=== PATIENT | female | born 1970 | race Caucasian/White ===

== ENCOUNTER 2022-10-29 11:00 | Emergency (ER) | payer SELFPAY ==
[2022-10-29 11:01] VITALS: BP 128/83; PULSE 60; RESP 16; TEMP 36.6; O2SAT 99; BMI 23.5
[2022-10-29 11:29] VITALS: BP 128/83; PULSE 60; RESP 16; TEMP 36.6; O2SAT 99
--- NOTE | 2022-10-29 12:27 | EDS_ITS ---
HPI History of Present Illness Chief Complaint: Abscess Informant: patient Narrative Narrative: Patient has had a small lump on her chest for many years. She had it biopsied about 4 years ago and it was benign. It is stayed a small lump about the size of an eraser. But over the last 2 to 3 days it has gotten swollen red and tender. No systemic symptoms such as nausea vomiting fevers or chills. No history of diabetes. No acute trauma. No other areas. No trouble breathing. PFSH PFSH Home Medications ovlfrju-qjhfptweadruk-mbnpszwg 250 mg-250 mg-65 mg tablet (Excedrin Migraine) 1 ea PO DAILY PRN PRN Migraine Symptoms 11/27/15 [History Last Taken Unknown] etodolac 300 mg capsule 300 mg PO TIDCM ##30 11/27/15 [Rx Last Taken Unknown] docusate sodium 100 mg capsule (DOK) 100 mg PO DAILY #20 caps 10/29/22 [Rx Last Taken Unknown] hydrocodone-acetaminophen 5-325mg 5mg-325mg 1 tab PO Q6H PRN pain 2 days #6 tabs 10/29/22 [Rx Last Taken Unknown] Allergy/AdvReac Type Severity Reaction Status Date / Time No Known Allergies Allergy Verified 10/29/22 11:02 Social History Smoking Status: Current every day smoker tobacco type: cigarettes ROS ROS ED Constitutional Constitutional ED: Denies chills or fever(s) Cardiovascular Cardiovascular: Denies palpitations or racing heartbeat Respiratory/Chest Respiratory/Chest: Denies cough, dyspnea or sputum Gastrointestinal Gastrointestinal: Denies abdominal pain, nausea or vomiting Genitourinary Genitourinary ED: Denies dysuria Musculoskeletal Musculoskeletal: Denies myalgias Integumentary Reports abscess Hematologic/Lymphatic Hematologic/Lymphatic: Denies easy bleeding or easy bruising Allergic/Immunologic Allergic/Immunologic ED: Denies urticaria EXAM Physical Exam Const Vital Signs: 10/29/22 11:01 10/29/22 11:29 Temperature 98 F 98 F Temperature Source Temporal Temporal Pulse Rate 60 60 Respiratory Rate 16 16 Blood Pressure 128/83 H 128/83 H Blood Pressure Mean 98 98 Pulse Ox 99 99 Oxygen Delivery Method Room Air Room Air Positive well nourished and well developed General Appearance ED: well developed and NAD HEENT Reports moist mucous membranes Eyes General Eye ED: Negative for scleral icterus Neck no lymphadenopathy Chest Wall Chest Narrative: Patient does have a swollen area that is about 2 cm around. There is erythema larger around this. It does have some mild fluctuance. There is a small dimple in the middle that looks like this is likely a poor indicating chronic epidermal inclusion cyst likely. I did do a bedside ultrasound that shows about a centimeter around area of likely fluid within this. Resp normal respiratory effort and clear to auscultation bilaterally Cardio regular rate and regular rhythm Neuro Sensorium / Orientation: alert Psych mental status grossly normal Skin Skin Narrative: See above [facility] MDM Narrative Medical decision making narrative: Procedure: Incision and drainage of abscess: I discussed risks and benefits with the patient. I explained that this is a chronic cyst that got acutely infected. Therefore it can have a higher chance to return.The area around the wound was sterilely prepped. It was cleansed with Shur-Clens and sterile saline. It was anesthetized with 4 cc of 1% lidocaine locally with good anesthesia. #11 blade was used to make an incision over the area. I was able to see the cyst wall. The incision was extended slightly to a total of 1.5 cm.We attempted to work around the cyst to pull it out complete but it was actually quite large and and then it broke and drained acutely purulent material due to its friability. This was irrigated and cleaned. I then still continued to pull the edges of the cyst wall out. We got quite a large amount of old cottage cheeselike cystic material. I was able to get a moderate amount of the cyst wall out but a lot of it just would not free. It was irrigated and cleaned. Gauze packing was placed. I explained care follow-up and expected course to the patient. No significant bleeding.No trouble breathing or significant pain. Patient tolerated quite well Procedures Other Procedures Procedure(s): Incision and drainage see MDM Discharge Plan Triage Chief Complaint: Abscess ED Provider: Farooq Fuentes Dx/Rx/DC Orders Clinical Impression: Abscess of chest wall, Epidermal inclusion cyst, Encounter for incision and drainage procedure Instructions: ED Abscess Incision And Drainage Prescriptions: New hydrocodone-acetaminophen 5-325 mg tablet 1 tab PO Q6H PRN (Reason: pain) 2 Days Qty: 6 0RF docusate sodium [DOK] 100 mg capsule 100 mg PO DAILY Qty: 20 0RF No Action cnepwse-cfqebwrczhhll-xgnhdiws [Excedrin Migraine] 1 EACH tablet 1 ea PO DAILY PRN PRN (Reason: Migraine Symptoms) etodolac 300 MG capsule 300 mg PO TIDCM Qty: 30 0RF Rx Instructions: with food Primary Care Provider: Tere Orta Referrals: Orlando Colorado DO [Non-Staff] - 3-5 Days Activity Restrictions/Additional Instructions: Pull wound packing/wick out in approximately 3 days. Disposition Disposition: Home, Self Care
== END 2022-10-29 14:10 | disposition home or self-care (01) ==
PROVIDERS: Emergency Provider Emergency Medicine; PCP Student in an Organized Health Care Education/Training Program; Visit Provider Emergency Medicine
DX: L02.213 Cutaneous abscess of chest wall (principal); L72.0 Epidermal cyst; F17.210 Nicotine dependence, cigarettes, uncomplicated
CPT/HCPCS: 10061; 99282

== ENCOUNTER 2023-02-17 18:05 | Emergency (ER) | payer BC, SELFPAY ==
[2023-02-17 18:06] VITALS: BP 138/89; PULSE 55; RESP 18; TEMP 36.3; O2SAT 100; BMI 24.7
--- NOTE | 2023-02-17 19:07 | EDS_ITS ---
HPI History of Present Illness Chief Complaint: Dental Informant: patient Narrative Narrative: Patient complains of dental pain and nausea from medicines. She has been having off-and-on dental pain for some months. She is seeing a dentist. She has an appointment for what sounds like extraction or possibly filling of cavities on 04 March about 2 weeks from now. She was on Augmentin about 3 or 4 weeks ago. It calmed down a little bit. She was now put on Augm entin a few days ago and is causing nausea. The teeth are not really better or worse. She is eating and drinking. She is not having chest pain. No abdominal pain. She has not vomited but she just gets very nauseated. PFSH PFSH Home Medications rylvvpz-vhedrwthcebtf-oldpghuh 250 mg-250 mg-65 mg tablet (Excedrin Migraine) 1 ea PO DAILY PRN PRN Migraine Symptoms 11/27/15 [History Last Taken Unknown] etodolac 300 mg capsule 300 mg PO TIDCM ##30 11/27/15 [Rx Last Taken Unknown] doxycycline monohydrate 100 mg capsule 100 mg PO BID #20 caps 10/29/22 [Rx Last Taken Unknown] hydrocodone-acetaminophen 5-325mg 5mg-325mg 1 tab PO Q6H PRN pain 2 days #6 tabs 10/29/22 [Rx Last Taken Unknown] clindamycin HCl 300 mg capsule (Cleocin HCl) 300 mg PO Q6H #40 CAPSULES 02/17/23 [Rx Last Taken Unknown] ondansetron 4 mg disintegrating tablet 4 mg PO Q8H PRN PRN Nausea #10 tabs 02/17/23 [Rx Last Taken Unknown] Allergy/AdvReac Type Severity Reaction Status Date / Time No Known Allergies Allergy Verified 02/17/23 18:08 Social History Smoking Status: Current every day smoker tobacco type: cigarettes ROS ROS ED Constitutional Constitutional ED: Denies chills, fever(s) or subjective Eyes Eyes: Denies change in vision ENT ENT ED: Reports other Details: Dental pain as in history of present illness ; Denies rhinorrhea or sore throat Cardiovascular Cardiovascular: Denies chest pain Respiratory/Chest Respiratory/Chest: Denies cough Gastrointestinal Gastrointestinal: Reports nausea; Denies abdominal pain or vomiting Musculoskeletal Musculoskeletal: Denies back pain, myalgias or neck pain Integumentary Denies rash Neurologic Neurologic: Denies headache(s) Hematologic/Lymphatic Hematologic/Lymphatic: Denies lymphadenopathy Allergic/Immunologic Allergic/Immunologic ED: Denies urticaria EXAM Physical Exam Narrative Exam Narrative: Patient awake alert. Laying in bed. No acute distress. HEENT shows no external swelling. No erythema. She does have multiple cavities mostly on the left lateral incisor and premolar area. There is a little gum redness. But no abscess. She has some gum retraction in other areas. Voice is normal. No Ludewig's angina. Nothing that can be drained. Eyes show no icterus Neck shows no lymphadenopathy. Lungs are clear bilaterally Heart is regular. Rate about 60. Abdomen soft nontender. Const Vital Signs: 02/17/23 18:06 Temperature 97.4 F L Temperature Source Temporal Pulse Rate 55 L Respiratory Rate 18 Blood Pressure 138/89 H Blood Pressure Mean 105 Pulse Ox 100 Oxygen Delivery Method Room Air MDM MDM MDM Narrative Medical decision making narrative: I think patient should be on antibiotics. She has erythema and pain of her teeth. I will switch to clindamycin. I will add Zofran for her nausea. She will follow-up with her dentist as planned. Discharge Plan Triage Chief Complaint: Dental ED Provider: Farooq Fuentes Dx/Rx/DC Orders Clinical Impression: Dental infection, Nausea, Medication reaction Instructions: ED Dental Abscess Prescriptions: New clindamycin HCl [Cleocin HCl] 300 mg capsule 300 mg PO Q6H Qty: 40 0RF ondansetron [ondansetron] 4 mg tablet,disintegrating 4 mg PO Q8H PRN PRN (Reason: Nausea) Qty: 10 0RF No Action hilpsdk-wwjtvagraafzw-blmozhbi [Excedrin Migraine] 1 EACH tablet 1 ea PO DAILY PRN PRN (Reason: Migraine Symptoms) etodolac 300 MG capsule 300 mg PO TIDCM Qty: 30 0RF Rx Instructions: with food hydrocodone-acetaminophen 5-325 mg tablet 1 tab PO Q6H PRN (Reason: pain) 2 Days Qty: 6 0RF doxycycline monohydrate 100 mg capsule 100 mg PO BID Qty: 20 0RF Primary Care Provider: Tere Orta Referrals: Tere Orta MD [Primary Care Provider] - Activity Restrictions/Additional Instructions: Low up with your dentist as scheduled. Disposition Disposition: Home, Self Care
== END 2023-02-17 19:28 | disposition home or self-care (01) ==
PROVIDERS: Emergency Provider Emergency Medicine; PCP Student in an Organized Health Care Education/Training Program; Visit Provider Emergency Medicine
DX: K04.7 Periapical abscess without sinus (principal); R11.0 Nausea; T36.0X5A Adverse effect of penicillins, initial encounter; F17.210 Nicotine dependence, cigarettes, uncomplicated
CPT/HCPCS: 99282

== ENCOUNTER 2024-03-06 08:47 | Emergency (ER) | payer BC, SELFPAY ==
[2024-03-06 08:47] VITALS: BP 134/99; PULSE 81; RESP 14; TEMP 36.6; O2SAT 96
--- NOTE | 2024-03-06 09:03 | EDS_ITS ---
HPI History of Present Illness Chief Complaint: Shortness of Breath Informant: patient Onset/Context/Timing Onset: Weeks (1) Context: gradual Timing: Continuous Quality: Positive for Dyspnea on exertion Worsened by: Exertion Relieved by: Rest Associated Symptoms Negative for cough, rhinorrhea, post nasal drip, ear pain, fever, sore throat, chills, sweats, clear sputum, white sputum, yellow sputum or green sputum Chest Pain: Positive for Dull Narrative Narrative: Patient presents with shortness of breath and pain in her right lower chest that has been getting worse over the past week. Patient states her pain is like a dull ache. Patient states it is along the right costal margin. Patient denies any trauma or injury. Patient states her breathing is worse with any exertion and taking a deep breath. Patient states it is better with rest. Patient denies any cough. Patient denies any fevers or chills. Patient denies any sore throat or rhinorrhea. PE Risk Factors: Negative for Cancer, OCP + Smoking + > 35, Prior DVT or PE, Recent immobilization, Recent surgery or Recent travel [facility] Medical History Hyperlipidemia Home Medications knojowu-igwkhgtzvjdxk-yolljbvh 250 mg-250 mg-65 mg tablet (Excedrin Migraine) 1 ea PO DAILY PRN PRN Migraine Symptoms 11/27/15 [History Last Taken Unknown] amlodipine 10 mg tablet 10 mg PO DAILY 03/06/24 [History Last Taken Unknown] buspirone 15 mg tablet 15 mg PO BID 03/06/24 [History Last Taken Unknown] clonazepam 0.5 mg tablet 0.5 mg PO QHS 03/06/24 [History Last Taken Unknown] fluoxetine 40 mg capsule 40 mg PO DAILY 03/06/24 [History Last Taken Unknown] Allergy/AdvReac Type Severity Reaction Status Date / Time No Known Allergies Allergy Verified 02/17/23 18:08 Surgical History H/O: hysterectomy Social History Smoking Status: Current every day smoker tobacco type: cigarettes EXAM Physical Exam Const Vital Signs: 03/06/24 08:47 03/06/24 09:37 03/06/24 09:45 Temperature 98 F Temperature Source Temporal Pulse Rate 81 77 Respiratory Rate 14 18 Respiratory Effort Normal Respiratory Depth Normal Respiratory Pattern Normal Normal Blood Pressure 134/99 H Blood Pressure Mean 110 Pulse Ox 96 Oxygen Delivery Method Room Air Room Air 03/06/24 10:45 Temperature Temperature Source Pulse Rate 74 Respiratory Rate 16 Respiratory Effort Respiratory Depth Respiratory Pattern Blood Pressure 108/62 Blood Pressure Mean 77 Pulse Ox 97 Oxygen Delivery Method Room Air Positive well nourished and well developed General Appearance ED: well developed and NAD HEENT Reports moist mucous membranes Neck supple, no meningeal signs and no JVD Chest Wall Chest Narrative: There is tenderness to palpation along the right costal margin. There is no edema or ecchymosis. There is no bony crepitance or step-off noted. Resp normal respiratory effort and clear to auscultation bilaterally Cardio regular rate and regular rhythm GI non-tender and non-distended Palpation: soft Extremity normal to inspection General Extremety ED: Negative for edema or tenderness General Extremity: Negative for edema Neuro oriented x3, CN's II-XII intact bilaterally and no sensory deficits noted [place] Coma Scale: document GCS findings Spontaneous Obeys Commands Oriented 15 Sensorium / Orientation: alert Motor Exam: strength 5/5 throughout Psych mental status grossly normal MDM MDM MDM Narrative Medical decision making narrative: Differential diagnosis includes pneumonia, viral infection, costochondritis, and reactive airway disease. CBC will be obtained to assess for leukocytosis and anemia. Basic metabolic profile will be obtained to assess for electrolyte abnormality and renal function. COVID-19, influenza, and RSV PCR will be obtained to assess for viral illness. Chest x-ray will be obtained to assess for pneumonia. Lab Data Attestation: I reviewed the patient's lab results. Lab results narrative: CBC was reviewed. White blood cell count was slightly low at 3.9. Hemoglobin was slightly elevated at 16.0. Remainder is within normal limits. Basic metabolic profile was reviewed and was essentially within normal limits. COVID- 19 PCR was reviewed and was negative. Influenza PCR was reviewed and was negative for influenza A and influenza B. RSV PCR was reviewed and was negative. Labs: Laboratory Results - last 24 hr 03/06/24 09:35 WBC 3.9 L RBC 5.37 Hgb 16.0 H Hct 46.7 MCV 87.0 MCH 29.8 MCHC 34.3 RDW Std Deviation 40.4 RDW Coeff of Jacque 12.9 Plt Count 276 MPV 9.7 Immature Gran % (Auto) 0.300 Neut % (Auto) 51.7 Lymph % (Auto) 35.5 [place] % (Auto) 7.7 Eos % (Auto) 3.3 Baso % (Auto) 1.5 H Absolute Neuts (auto) 2.0 Absolute Lymphs (auto) 1.38 Nucleated RBC % 0 Sodium 138 Potassium 3.5 Chloride 103 Carbon Dioxide 28.0 Anion Gap 7 BUN 22 H Creatinine 0.97 Estim Creat Clear Calc 60.98 Est GFR (MDRD) Af Amer 78 Est GFR (MDRD) Non-Af 65 BUN/Creatinine Ratio 22.8 H Glucose 91 Calcium 10.2 H Radiography Chest X-Ray - ED: 2 View, Read by ED Physician, Read by Radiologist and No Acute Disease Diagnostic Testing: PA and lateral chest x-ray was obtained. There are 2 views. On my independent interpretation, lung whitney are clear. There is normal cardiac silhouette. Bony thorax is normal. There is no acute process noted. Radiologist also interpreted the x-ray and agrees. Treatment and Re-Evaluation :: Patient was advised of her findings. Patient was advised that this could be co stochondritis along her costal margin. Patient was instructed to drink plenty of fluids. Patient was instructed to take Tylenol or ibuprofen as needed for pain. Patient was instructed to follow-up with her primary care physician in 5 to 7 days. Patient understood and was agreeable with the plan. All questions were answered. Discharge Plan Triage Chief Complaint: Shortness of Breath ED Provider: Jabari Desouza Dx/Rx/DC Orders Clinical Impression: Nicotine dependence, Costochondritis, Viral illness Instructions: ED Chest Wall Pain, Costochondritis Prescriptions: No Action Excedrin Migraine 1 EACH tablet 1 ea PO DAILY PRN PRN (Reason: Migraine Symptoms) fluoxetine 40 mg capsule 40 mg PO DAILY clonazepam 0.5 mg tablet 0.5 mg PO QHS amlodipine 10 mg tablet 10 mg PO DAILY buspirone 15 mg tablet 15 mg PO BID Stand Alone Forms: ED Work / School Excuse Primary Care Provider: Walter Decker Referrals: Walter Decker DO [Primary Care Provider] - 5-7 Days Tere Orta MD [Non-Staff] - 5-7 Days Disposition Disposition: Home, Self Care
[2024-03-06 09:37] VITALS: O2SAT 97
[2024-03-06] MEDS: Ipratropium/Albuterol Sulfate 3 ML AMPUL.NEB INHALATION (09:43)
[2024-03-06 09:45] VITALS: PULSE 77; RESP 18
[2024-03-06 09:51] LABS: Absolute Lymphocyte Count 1.38 X10^3/uL (0.83-4.51); Basophil# 0.06 X10^3/uL; Basophil% 1.5 % (0-1); Eosinophil# 0.13 X10^3/uL; Eosinophils% 3.3 % (0-5); Hematocrit 46.7 % (37-47); Lymphocyte # 1.38 X10^3/ul (0.83-4.51); Lymphocyte % 35.5 % (19-41); Mean Corp Hgb Conc 34.3 g/dL (32-36); Mean Corpuscular Hgb 29.8 pg (27.0-32.0); Mean Platelet Vol. 9.7 fl (6.2-12.0); Monocyte% 7.7 % (0-10); NRBC Flagged by Analyzer 0 % (0-5); Neutrophil # 2.01 X10^3/uL (2.7-7.7); Neutrophil % 51.7 % (47-70); Platelet Count 276 K/mm3 (150-450); RBC Distribution Width CV 12.9 % (11.6-14.6); RBC Distribution Width SD 40.4 fl (35.1-43.9); Red Blood Count 5.37 M/mm3 (4.2-5.4); White Blood Count 3.9 K/mm3 (4.4-11.0)
--- NOTE | 2024-03-06 10:00 | RAD_ITS ---
INDICATION: Dyspnea EXAMINATION/TECHNIQUE: X-RAY - XR Chest 2 Views COMPARISON: Prior study dated: 02/08/2006 FINDINGS: LINES/DEVICES: None. LUNGS: No consolidation, edema or effusion. No pneumothorax. MEDIASTINUM AND CARDIOVASCULAR STRUCTURES: Cardiac silhouette not enlarged. Central airways and mediastinal contour are unremarkable. BONES AND SOFT TISSUES: Unremarkable. RAD/Chest PA and Lateral IMPRESSION: No radiographic evidence of acute cardiopulmonary disease. Electronically Signed: Meliton Loya MD at 11:43 EDT ,
[2024-03-06 10:05] LABS: Anion Gap 7 (5-15); BUN 22 mg/dL (7-18); BUN/Creat Ratio 22.8 RATIO (10-20); Calcium,Total 10.2 mg/dL (8.5-10.1); Chloride 103 mmol/L (98-107); Creatinine, Serum 0.97 mg/dL (0.55-1.02); EST Glomerular Filtration Rate 65 mL/min (>60); Est Glom Filt Rate - Afr Amer 78 mL/min (>60); Estimated Creatinine Clearance 60.98 ml/min; Glucose 91 mg/dL (74-106); Potassium 3.5 mmol/L (3.5-5.1); Sodium Level 138 mmol/L (136-145)
[2024-03-06 10:45] VITALS: BP 108/62; PULSE 74; RESP 16; O2SAT 97
[2024-03-06 11:56] VITALS: BP 136/77; PULSE 87; RESP 16; TEMP 36.6; O2SAT 97
== END 2024-03-06 11:57 | disposition home or self-care (01) ==
PROVIDERS: Emergency Provider Emergency Medicine; PCP Family Medicine; Visit Provider Emergency Medicine
DX: M94.0 Chondrocostal junction syndrome [Tietze] (principal); B34.9 Viral infection, unspecified; F17.210 Nicotine dependence, cigarettes, uncomplicated
CPT/HCPCS: 71046; 80048; 85025; 87631; 94640; 99282; A4216